=== PATIENT | female | born 1975 | race Caucasian/White ===

== ENCOUNTER 2019-09-15 19:57 | Emergency (ER) | payer OTHER ==
[2019-09-15 20:53] VITALS: BMI 26.5
--- NOTE | 2019-09-15 21:05 | PDOC ---
History of Present Illness - General Chief Complaint: Chest Pain Stated Complaint: CHEST PAIN - History of Present Illness Initial Comments: Ms. Abernathy is a 44 y/o female with no significant PMH presenting today with mid-sternal chest pain. Reports that the pain started 1 hour ago after she finished dinner. Describes the pain as dull, intermittent but increasing in duration. Pain radiates to the left shoulder and to her mid back. Reports associated headache. No shortness of breath or abdominal pain. Reports nausea but no vomiting. Denies dysuria/diarrhea. Denies recent illness. Reports some recent stressors. Reports that the pain has resolved at present. Meds: none SocHx: smokes a few cigarettes a day FamHx: CVA x2 in maternal grandmother Past History - Past Medical History Allergies/Adverse Reactions: Allergies Allergy/AdvReac Type Severity Reaction Status Date / Time No Known Allergies Allergy Verified 09/15/19 20:28 - Psycho Social/Smoking Cessation Hx Smoking History: Unknown if ever smoked Hx Alcohol Use: No Drug/Substance Use Hx: No Review of Systems - Review of Systems Comments:: GENERAL/CONSTITUTIONAL: No fever or chills. No weakness._ HEAD, EYES, EARS, NOSE AND THROAT: No change in vision. No change in hearing. No sore throat._ CARDIOVASCULAR: Reports chest pain. No shortness of breath_ RESPIRATORY: Denies cough, hemoptysis_ GASTROINTESTINAL: Reports nausea. No vomiting, diarrhea or constipation._ GENITOURINARY: No dysuria, frequency, or change in urination._ MUSCULOSKELETAL: No joint or muscle swelling or pain. No neck or back pain._ SKIN: No rash_ NEUROLOGIC: No headache, vertigo, loss of consciousness, or change in strength/ sensation._ ENDOCRINE: No increased thirst. No abnormal weight change_ HEMATOLOGIC/LYMPHATIC: No anemia, easy bleeding, or history of blood clots._ ALLERGIC/IMMUNOLOGIC: No hives or skin allergy._ *Physical Exam - Vital Signs Last Vital Signs Temp Pulse Resp BP Pulse Ox 98.1 F 72 18 100/69 98 09/15/19 20:00 09/15/19 20:00 09/15/19 20:00 09/15/19 20:00 09/15/19 20:00 - Physical Exam GENERAL: Awake, alert, and oriented to person/place/time, in no acute distress_ HEAD: No signs of trauma, normocephalic, atraumatic _ EYES: PERRLA, EOMI, sclera anicteric, conjunctiva clear_ ENT: Hearing grossly normal, nares patent, oropharynx clear without exudates. No uvular deviation. Moist mucosa_ NECK: Normal ROM, supple, no lymphadenopathy, JVD, or masses_ LUNGS: No distress, speaks in full sentences, clear to auscultation bilaterally _ CHEST: No TTP. No bruising or trauma appreciated. HEART: Regular rate and rhythm, normal S1 and S2, no murmurs appreciated, peripheral pulses normal and equal bilaterally._ ABDOMEN: Soft, nontender, normoactive bowel sounds. No guarding, no rebound. No masses_ EXTREMITIES: Normal inspection, Normal range of motion, no edema. No clubbing or cyanosis_ NEUROLOGICAL: Cranial nerves II through XII grossly intact. Normal speech, normal gait, no focal sensorimotor deficits _ SKIN: Warm, Dry, normal turgor, no rashes or lesions noted_ ED Treatment Course - LABORATORY CBC & Chemistry Diagram: 09/15/19 21:26 09/15/19 21:26 - ADDITIONAL ORDERS Additional order review: Laboratory Results 09/15/19 09/15/19 09/15/19 21:26 21:26 21:26 Sodium 138 Potassium 4.2 Chloride 106 Carbon Dioxide 28 Anion Gap 4 L BUN 17.3 Creatinine 1.1 Est GFR (CKD-EPI)AfAm 71.71 Est GFR (CKD-EPI)NonAf 61.88 Random Glucose 80 Calcium 8.8 Total Bilirubin 0.3 AST 21 ALT 22 Alkaline Phosphatase 50 Creatine Kinase 60 Troponin I < 0.02 Total Protein 8.1 Albumin 3.6 Urine Color Yellow Urine Appearance Clear Urine pH 6.5 Ur Specific [place] 1.014 Urine Protein Negative Urine Glucose (UA) Negative Urine Ketones Negative Urine Blood Negative Urine Nitrite Negative Urine Bilirubin Negative Urine Urobilinogen 0.2 Ur Leukocyte Esterase Trace Urine WBC (Auto) 2 Urine RBC (Auto) 1 Urine Casts (Auto) 0 U Epithel Cells (Auto) 2.3 Urine Bacteria (Auto) 239.0 09/15/19 21:26 RBC 4.13 MCV 91.6 MCHC 33.9 RDW 14.6 MPV 9.4 Neutrophils % 46.1 Lymphocytes % 42.5 H Monocytes % 8.2 Eosinophils % 2.2 Basophils % 1.0 - RADIOLOGY Radiology Studies Ordered: Category Date Time Status CHEST PA & LAT [RAD] Stat Radiology 09/15/19 21:06 Completed - Medications Given in the ED: ED Medications Discontinued Medications Generic Name Dose Route Start Last Admin Trade Name Alvin PRN Reason Stop Dose Admin Acetaminophen 1,000 mg 09/15/19 21:08 09/15/19 21:31 Ofirmev Injection - IVPB 09/15/19 21:09 1,000 mg ONCE ONE Administration Al Hydroxide/Mg Hydroxide 30 ml 09/15/19 21:08 09/15/19 21:31 Mylanta Suspension - PO 09/15/19 21:09 30 ml ONCE ONE Administration Famotidine 20 mg 09/15/19 21:08 09/15/19 21:31 Pepcid - PO 09/15/19 21:09 20 mg ONCE ONE Administration Sodium Chloride 1,000 ml 09/15/19 21:08 09/15/19 21:31 Normal Saline - IV 09/15/19 21:09 1,000 ml ONCE ONE Administration Medical Decision Making - Medical Decision Making 09/15/19 21:10 44F presenting with midsternal chest pain radiating to the back and left shoulder. Pain resolved now. HEART score 1. -cbc, cmp -ekg, trop, cxr -tylenol, fluids -pepcid, maalox 09/15/19 21:20 EKG shows NSR, 68 bpm, no ST elevation/depression, no axis deviation, QTc 406. 09/15/19 22:34 CXR shows no acute intrathoracic pathology. 09/15/19 23:27 Labs reviewed. Pt reassessed. Reports that her symptoms have resolved. Plan to d/c home, with PCP f/u PRN, tylenol and pepcid for pain. Return precautions given. All questions answered. Pt verbalized understanding and agreement with plan. Laboratory Last Values WBC 6.2 K/mm3 (4.0-10.0) 09/15/19 21: RBC 4.13 M/mm3 (3.60-5.2) 09/15/19 21:26 Hgb 12.8 GM/dL (10.7-15.3) 09/15/19 21: Hct 37.8 % (32.4-45.2) 09/15/19 21: MCV 91.6 fl (80-96) 09/15/19 21: MCH 31.0 pg (25.7-33.7) 09/15/19 21: MCHC 33.9 g/dl (32.0-36.0) 09/15/19 21: RDW 14.6 % (11.6-15.6) 09/15/19 21: Plt Count 235 K/MM3 (134-434) 09/15/19 21: MPV 9.4 fl (7.5-11.1) 09/15/19 21: Absolute Neuts (auto) 2.9 K/mm3 (1.5-8.0) 09/15/19 21: Neutrophils % 46.1 % (42.8-82.8) 09/15/19 21: Lymphocytes % 42.5 % (8-40) H 09/15/19: Monocytes % 8.2 % (3.8-10.2) 09/15/19: Eosinophils % 2.2 % (0-4.5) 09/15/19 21: Basophils % 1.0 % (0-2.0) 09/15/19 21: Nucleated RBC % 0 % (0-0) 09/15/19 21: Sodium 138 mmol/L (136-145) 09/15/19 21: Potassium 4.2 mmol/L (3.5-5.1) 09/15/19 21: Chloride 106 mmol/L (98-107) 09/15/19 21: Carbon Dioxide 28 mmol/L (21-32) 09/15/19 21: Anion Gap 4 MMOL/L (8-16) L 09/15/19 21: BUN 17.3 mg/dL (7-18) 09/15/19 21: Creatinine 1.1 mg/dL (0.55-1.3) 09/15/19 21: Est GFR (CKD-EPI)AfAm 71.71 09/15/19 21: Est GFR (CKD-EPI)NonAf 61.88 09/15/19 21: Random Glucose 80 mg/dL (74-106) 09/15/19 21: Calcium 8.8 mg/dL (8.5-10.1) 09/15/19: Total Bilirubin 0.3 mg/dL (0.2-1) 09/15/19: AST 21 U/L (15-37) 09/15/19: ALT 22 U/L (13-61) 09/15/19: Alkaline Phosphatase 50 U/L (45-117) 09/15/19: Creatine Kinase 60 U/L (26-192) 09/15/19: Troponin I < 0.02 ng/ml (0.00-0.05) 09/15/19: Total Protein 8.1 g/dl (6.4-8.2) 09/15/19: Albumin 3.6 g/dl (3.4-5.0) 09/15/19: Urine Color Yellow 09/15/19: Urine Appearance Clear 09/15/19: Urine pH 6.5 (5.0-8.0) 09/15/19: Ur Specific [place] 1.014 (1.010-1.035) 09/15/19: Urine Protein Negative (NEGATIVE) 09/15/19: Urine Glucose (UA) Negative (NEGATIVE) 09/15/19: Urine Ketones Negative (NEGATIVE) 09/15/19: Urine Blood Negative (NEGATIVE) 09/15/19: Urine Nitrite Negative (NEGATIVE) 09/15/19: Urine Bilirubin Negative (NEGATIVE) 09/15/19: Urine Urobilinogen 0.2 mg/dL (0.2-1.0) 09/15/19: Ur Leukocyte Esterase Trace (NEGATIVE) 09/15/19: Urine WBC (Auto) 2 /hpf (0-5) 09/15/19: Urine RBC (Auto) 1 /hpf (0-4) 09/15/19: Urine Casts (Auto) 0 /lpf (0-8) 09/15/19: U Epithel Cells (Auto) 2.3 /HPF (0-5/HPF) 09/15/19: Urine Bacteria (Auto) 239.0 /hpf (NEGATIVE) 09/15/19 Discharge - Discharge Information Problems reviewed: Yes Clinical Impression/Diagnosis: Chest pain Condition: Stable Disposition: HOME - Admission No - Follow up/Referral Referrals: Wes Rubi MD [Staff Physician] - - Patient Discharge Instructions Patient Printed Discharge Instructions: DI for Chest Pain Additional Instructions: Please make a follow up appointment with a primary care doctor (referral provided here). If you experience any new, worsening, or concerning symptoms, including severe chest pain, shortness of breath, nausea/vomiting, or any other concerns, please return to the emergency department. - Post Discharge Activity
[2019-09-15] MEDS ORDERED: MAG HYDROX/AL HYDROX/SIMETH -MYLANTA- ORAL SUSPENSION PO ONE (21:08)
[2019-09-15] MEDS ORDERED: ACETAMINOPHEN 1000 MG/100 ML VIAL (NON FORMULARY) IVPB ONE (21:08)
[2019-09-15] MEDS ORDERED: FAMOTIDINE 20 MG TABLET PO ONE (21:08)
[2019-09-15] MEDS ORDERED: SODIUM CHLORIDE 0.9% 500 ML INFUS.BAG IV ONE (21:08)
[2019-09-15] MEDS ORDERED: MAG HYDROX/AL HYDROX/SIMETH 30 ML UNIT-DOSE CUP ONE (21:14)
[2019-09-15] MEDS ORDERED: ACETAMINOPHEN INJECTION 100 ML IVPB ONE (21:14)
[2019-09-15] MEDS ORDERED: FAMOTIDINE 20 MG/50 ML IVPB 20 MG/50 ML MG IVPB ONE (21:14)
--- NOTE | 2019-09-15 21:43 | PDOC ---
Documentation entered by Annmarie Vazquez SCRIBE, acting as scribe for Magaly Villagran MD. Magaly Villagran MD: This documentation has been prepared by the George vaughn Brenda, SCRIBE, under my direction and personally reviewed by me in its entirety. I confirm that the documentation accurately reflects all work, treatment, procedures, and medical decision making performed by me. Attending Attestation - Resident Resident Name: Suleiman Munoz - ED Attending Attestation I have performed the following: I have examined & evaluated the patient, The case was reviewed & discussed with the resident, I agree w/resident's findings & plan, Exceptions are as noted - HPI HPI: 09/15/19 21:40 The 44-year-old female who developed substernal chest pain radiating to her left arm and shoulder about 1 hour after eating dinner. She said she had some nausea and headache She denies abdominal pain, shortness of breath, vomiting The pain resolved without intervention - Physicial Exam PE: 09/15/19 21:42 wnwd 44 yo female in no acute distress head ncat neck supple, no bruits lungs cta b/l cvs [id number] abd nontender skin warm ans dry extreites no edema neuro axox3,ambulatory - Medical Decision Making 09/15/19 21:41 Social history + tobacco use No family history of early cardiac demise ekg,trop r/o ACS 09/15/19 23:37 EKG is normal sinus rhythm 68 bpm normal sinus rhythm, QTC 406 ms nonspecific T wave abnormality no signs of ischemia Negative cardiac enzymes Chest x-ray no acute pulmonary disease, normal cardiac silhouette normal mediastinum Patient recently moved back from [place] and does not have a primary care physician and so she was referred to the [facility] in internal medicine group Impression atypical chest pain
[2019-09-15 21:46] LABS: EOS % 2.2 % (0-4.5); HEMATOCRIT 37.8 % (32.4-45.2); HEMOGLOBIN 12.8 GM/dL (10.7-15.3); LYMPH % 42.5 % (8-40); MCHC 33.9 g/dl (32.0-36.0); MEAN CELL VOLUME 91.6 fl (80-96); MEAN PLT VOLUME 9.4 fl (7.5-11.1); MONO % 8.2 % (3.8-10.2); NEUT % 46.1 % (42.8-82.8); PLATELET COUNT 235 K/MM3 (134-434); RBC 4.13 M/mm3 (3.60-5.2); RDW 14.6 % (11.6-15.6); WHITE BLOOD COUNT 6.2 K/mm3 (4.0-10.0)
[2019-09-15 22:01] LABS: EPI CELLS 2.3 /HPF (0-5/HPF); HYALINE CASTS 0 /lpf (0-8); PH,URINE 6.5 (5.0-8.0); URINE APPEARANCE CLEAR; URINE BILIRUBIN NEGATIVE (NEGATIVE); URINE COLOR YELLOW; URINE GLUCOSE (UA) NEGATIVE (NEGATIVE); URINE KETONE NEGATIVE (NEGATIVE); URINE LEUK ESTERASE TRACE (NEGATIVE); URINE NITRITE NEGATIVE (NEGATIVE); URINE PROTEIN NEGATIVE (NEGATIVE); URINE RBC 1 /hpf (0-4); URINE UROBILINOGEN 0.2 mg/dL (0.2-1.0); URINE WBC 2 /hpf (0-5)
[2019-09-15 23:08] LABS: ALBUMIN 3.6 g/dl (3.4-5.0); BILIRUBIN,TOTAL 0.3 mg/dL (0.2-1); BLOOD UREA NITROGEN 17.3 mg/dL (7-18); CALCIUM 8.8 mg/dL (8.5-10.1); CREATININE 1.1 mg/dL (0.55-1.3); POTASSIUM 4.2 mmol/L (3.5-5.1); TOT PROT 8.1 g/dl (6.4-8.2)
[2019-09-15 23:37] VITALS: BP 109/72; PULSE 75; TEMP 98.5
--- NOTE | 2019-09-16 11:29 | EKG ---
Test Reason : Blood Pressure : / mmHG Vent. Rate : 068 BPM Atrial Rate : 068 BPM P-R Int : 152 ms QRS Dur : 078 ms QT Int : 382 ms P-R-T Axes : 031 060 078 degrees QTc Int : 406 ms POOR DATA QUALITY, INTERPRETATION MAY BE ADVERSELY AFFECTED NORMAL SINUS RHYTHM NONSPECIFIC T WAVE ABNORMALITY ABNORMAL ECG NO PREVIOUS ECGS AVAILABLE Confirmed by Suleiman Kamara MD ([id number]) on 09/16/2019 11:28:51 AM Referred By: Confirmed By:Suleiman Kamara MD
== END 2019-09-15 23:37 | disposition home or self-care (01) ==
LOC: JER 19:57
PROC: 3E033NZ Introduction of Analgesics, Hypnotics, Sedatives into Peripheral Vein, Percutaneous Approach (ICD-10-PCS; principal; 2019-09-15)
DX: R07.89 Other chest pain (principal)
CPT/HCPCS: 36415; 71046-TC-FY; 80053; 81003; 82550; 84484; 85025; 93005; 93010; 99283-25; J0131